=== PATIENT | female | born 1950 | race African-American/Black ===

== ENCOUNTER 2019-03-12 08:54 | Emergency (ER) | payer OTHER ==
[2019-03-12 09:33] LABS: ABSOLUTE NEUTROPHILS 13.9 thou/uL (1.4-8.2); BASOPHILS 0.6 % (0.0-2.0); EOSINOPHILS 0.2 % (0.0-3.0); HEMATOCRIT 27.9 % (37.0-47.0); HEMOGLOBIN 8.7 gm/dL (12.0-15.0); LYMPHOCYTES 14.8 % (24.0-44.0); MCH 29.5 pg (26.0-34.0); MCHC 31.4 g/dL (28.0-37.0); MCV 93.9 fL (80.0-100.0); MONOCYTES 1.5 % (1.0-8.0); PLATELET COUNT 239 thou/uL (150-400); POLYS 82.9 % (36.0-66.0); RBC 2.97 mil/uL (4.20-5.00); RDW 17.7 % (10.5-14.5); WBC 16.8 thou/uL (4.0-11.0)
[2019-03-12 09:38] LABS: CALCIUM 9.2 mg/dL (8.5-10.1); CREATININE 3.3 mg/dL (0.6-1.0); POTASSIUM 4.2 mmol/L (3.5-5.1)
[2019-03-12 09:44] LABS: ALBUMIN 2.4 g/dL (3.4-5.0); TOTAL BILIRUBIN 0.4 mg/dL (<0.1-1.0); TOTAL PROTEIN 6.7 g/dL (6.4-8.2)
[2019-03-12 09:57] LABS: APTT 26.4 Seconds (24.5-32.8); PROTIME 10.5 Seconds (9.3-11.4)
[2019-03-12 10:01] LABS: MAGNESIUM 2.9 mg/dL (1.8-2.4); TROPONIN-I 0.12 ng/mL (<0.06)
== END 2019-03-12 11:15 ==
LOC: ER 08:54
PROVIDERS: Emergency Medicine
DX: I46.9 Cardiac arrest, cause unspecified (principal); Z86.79 Personal history of other diseases of the circulatory system